=== PATIENT | female | born 1980 | race Caucasian/White ===

== ENCOUNTER 2017-01-01 22:23 | Emergency (ER) | payer OTHER, MEDICAID ==
[2017-01-02] MEDS ORDERED: HYDROCODONE/ACETAMINOPHEN 5/325MG TABLET ONE ×2 (00:01)
== END 2017-01-02 00:12 | disposition home or self-care (01) ==
LOC: ED 22:23
DX: M25.511 Pain in right shoulder (principal); E11.9 Type 2 diabetes mellitus without complications; Z79.4 Long term (current) use of insulin; Z79.84 Long term (current) use of oral hypoglycemic drugs
CPT/HCPCS: 99282; 99283; A9270 ×2